=== PATIENT | female | born 1995 | race Caucasian/White ===

== ENCOUNTER → 2020-08-13 12:49 | Outpatient (CLI) | payer OTHER, SELFPAY ==
[2020-08-14 15:20] LABS: Strep Grp B PCR NEG for Grp B Strep
== END ==
PROVIDERS: Visit Provider Family Medicine
DX: Z34.83 Encounter for supervision of other normal pregnancy, third trimester (principal); Z3A.36 36 weeks gestation of pregnancy
CPT/HCPCS: 87653

== ENCOUNTER 2020-08-30 14:44 | Outpatient (CLI) | payer OTHER, SELFPAY ==
[2020-08-30 15:10] LABS: RBC Urine None Seen (0-5/HPF)
[2020-08-30 15:11] LABS: Appearance Urine UA CLEAR; Bilirubin Urine UA NEGATIVE (NEGATIVE); Color Urine UA YELLOW; Glucose Urine UA NEGATIVE (Negative); Ketones Urine UA NEGATIVE (NEGATIVE); Leukocyte Esterase Urine UA NEGATIVE (NEGATIVE); Nitrite Urine UA NEGATIVE (Negative); Occult Blood Urine UA NEGATIVE (Negative); Protein Urine UA NEGATIVE (Negative); Specific Gravity Urine UA <=1.005 (1.000-1.035); Urobilinogen Urine UA 0.2 E.U./dL (0.2)
[2020-08-30 15:17] LABS: pH Urine UA 6.5 (4.5-8.0)
[2020-08-30 15:19] LABS: Squamous Epithelial Cell Urine 1-5 /HPF (0-5/HPF); WBC Urine 1-5/HPF (0-5/HPF)
[2020-08-30 15:20] LABS: Bacteria Urine Many (>30); Culture Indicated Urine Specimen Cultured
[2020-08-30 15:28] LABS: Add Manual Diff / Slide Review NO; Basophils Absolute Auto 0 /uL (0-100); Basophils Percent Auto 0.3 % (0-2); Eosinophils Absolute Auto 0 /uL (0-450); Eosinophils Percent Auto 0.3 % (2-4); Hematocrit 37.8 % (36-46); Hemoglobin 12.6 g/dL (12.0-16.0); Lymphocytes Absolute Auto 2500 /uL (1100-4500); Lymphocytes Percent Auto 16.2 % (25-40); Mean Corpuscular HGB Conc 33.2 % (30-36); Mean Corpuscular Hemoglobin 30.6 PG (26-34); Mean Corpuscular Volume 92.2 fL (80-100); Monocytes Absolute Auto 1000 /uL (0-900); Monocytes Percent Auto 6.3 % (3-14); Neutrophils Absolute Auto 11800 /uL (1500-7000); Neutrophils Percent Auto 76.9 % (50-75); Platelet Count 269 X10^3/uL (150-400); Red Cell Distribution Width 13.4 % (11.6-14.8); White Blood Cell Count 15.3 X10^3/uL (4.5-11.0)
[2020-08-30 15:41] LABS: Aspartate Aminotransferase 23 IU/L (14-36); BUN Creatinine Ratio 12.3 (6-22); Blood Urea Nitrogen 7 mg/dL (7-17); Estimated Glomerular Filt Rate > 60.0 mL/min (>60); Uric Acid 5.2 mg/dL (2.5-6.2)
[2020-08-30] MEDS: ACETAMINOPHEN 325 MG TABLET 975 MG PO (16:15)
== END 2020-08-30 16:20 | disposition home or self-care (01) ==
LOC: OB 08-31 12:01
PROVIDERS: Referring Provider Obstetrics & Gynecology; Visit Provider Obstetrics & Gynecology
DX: O13.3 Gestational [pregnancy-induced] hypertension without significant proteinuria, third trimester (principal); O36.8130 Decreased fetal movements, third trimester, not applicable or unspecified; Z3A.38 38 weeks gestation of pregnancy
CPT/HCPCS: 36415; 59025; 81001; 84450; 84550; 85025; 87086; G0378; G0379

== ENCOUNTER 2020-09-06 01:57 | Inpatient (IN) | payer OTHER, SELFPAY ==
[2020-09-06 03:39] LABS: Add Manual Diff / Slide Review NO; Basophils Absolute Auto 0 /uL (0-100); Basophils Percent Auto 0.2 % (0-2); Eosinophils Absolute Auto 100 /uL (0-450); Eosinophils Percent Auto 0.3 % (2-4); Hemoglobin 12.9 g/dL (12.0-16.0); Lymphocytes Absolute Auto 3600 /uL (1100-4500); Lymphocytes Percent Auto 17.5 % (25-40); Mean Corpuscular HGB Conc 33.9 % (30-36); Mean Corpuscular Hemoglobin 31.3 PG (26-34); Mean Corpuscular Volume 92.2 fL (80-100); Monocytes Absolute Auto 1100 /uL (0-900); Monocytes Percent Auto 5.5 % (3-14); Neutrophils Absolute Auto 15700 /uL (1500-7000); Neutrophils Percent Auto 76.5 % (50-75); Platelet Count 260 X10^3/uL (150-400); Red Blood Cell Count 4.12 X10^6/uL (4.0-5.2); Red Cell Distribution Width 13.2 % (11.6-14.8); White Blood Cell Count 20.5 X10^3/uL (4.5-11.0)
[2020-09-06 04:15] LABS: COVID19 -Nasal RAPID Negative (Negative)
[2020-09-06 04:22] LABS: Alanine Aminotransferase 17 IU/L (<35); Albumin 3.8 g/dL (3.5-5.0); Albumin Globulin Ratio 1.2 (1.0-2.8); Alkaline Phosphatase 126 U/L (38-126); Aspartate Aminotransferase 21 IU/L (14-36); BUN Creatinine Ratio 17.9 (6-22); Bilirubin Total 0.2 mg/dL (0.2-1.3); Bilirubin Unconjugated 0.2 mg/dL (0.0-1.1); Blood Urea Nitrogen 10 mg/dL (7-17); Calcium 8.8 mg/dL (8.4-10.2); Carbon Dioxide 23 mmol/L (22-32); Chloride 106 mmol/L (98-107); Estimated Glomerular Filt Rate > 60.0 mL/min (>60); Globulin 3.3 g/dL (1.7-4.1); Glucose 101 mg/dL (70-100); HEMOLYSIS < 15 (0-50); Potassium 4.2 mmol/L (3.4-5.1); Sodium 134 mmol/L (137-145); Total Protein 7.1 g/dL (6.3-8.2); Uric Acid 5.3 mg/dL (2.5-6.2)
[2020-09-06 05:05] VITALS: BP 144/84
[2020-09-06 06:18] LABS: Creatinine Urine Random 51.1 mg/dL; Protein (Total) Urine Random 11 mg/dL (0-12); Protein Creatinine Ratio Urine 0.21 GRAM/24H
--- NOTE | 2020-09-06 07:57 | PM.OBHP.1 ---
OB HPI Date/Time Date of admission: 09/06/20 Date Patient Seen: 09/06/20 Time Patient Seen: 08:15 History of Present Condition Chief complaint: obs : 2 Para: 0 Estimated Date of Delivery: 09/07/20 Estimated Gestational Age (weeks): 39+6 Narrative: Terri Ayers is a 24 year old at 39 weeks and 6 days gestation. She came in with regular contractions which increased in frequency and intensity overnight. Contractions began at approximately 8:00 p.m. yesterday. Denies leaking bleeding and reports good movement. has been uncomplicated without gestational diabetes or preeclampsia however blood pressures have been persistently elevated since admission. She denies headache, edema or right upper quadrant pain. Preeclampsia labs all normal. Patient transferred care from the [facility] at 30 weeks. History of Present care: good care, initiated at week # (10), number of visits (10) and pounds weight gain (52) Dating criteria: LMP confirmed by 1st trimester US Ultrasounds: normal mid trimester US Obstetrical complications: none Medical complications: none Preadmission Labs Blood type: A (+) positive -: Antibody screen: negative, GBS status: negative, HBsAG: negative, HIV: negative and RPR/VDLR: negative -: Chlamydia screen: not detected and Gonorrhea screen: not detected -: Rubella: immune and Varicella: not immune HCT: 35.5 HCAB: negative PAP: Normal Integrated screen: Negative Urine: 20,000 Klebsiella 1 hr GTT: 86 Prior (ies) History: 05/30/19 SAB with D&C at 8 weeks Evaluation Evaluation Baseline heart rate: 140 Variability: Moderate (11-25) monitor accelerations: Present monitor decelerations: Absent Contraction Frequency (minutes): 3 Category of Tracing: Reactive Cervical dilation (cm): 5 Cervical effacement (%): 100 station: -2 Laboratory results: Laboratory Tests 09/06/20 09/06/20 09/06/20 02:25 02:40 02:40 WBC 20.5 H RBC 4.12 Hgb 12.9 Hct 38.0 MCV 92.2 MCH 31.3 MCHC 33.9 RDW 13.2 Plt Count 260 Neut % (Auto) 76.5 H Lymph % (Auto) 17.5 L [place] % (Auto) 5.5 Eos % (Auto) 0.3 L Baso % (Auto) 0.2 Neut # (Auto) 16526 H Lymph # (Auto) 3600 [place] # (Auto) 1100 H Eos # (Auto) 100 Baso # (Auto) 0 Sodium Potassium Chloride Carbon Dioxide BUN Creatinine Estimated GFR BUN/Creatinine Ratio Glucose Uric Acid Calcium Total Bilirubin Conjugated Bilirubin Unconjugated Bilirubin AST ALT Alkaline Phosphatase Total Protein Albumin Globulin Albumin/Globulin Ratio U Random Total Protein Urine Creatinine Protein/Creatinin Ratio COVID-19 PCR Negative Blood Type A Positive Antibody Screen Negative 09/06/20 09/06/20 04:00 05:59 WBC RBC Hgb Hct MCV MCH MCHC RDW Plt Count Neut % (Auto) Lymph % (Auto) [place] % (Auto) Eos % (Auto) Baso % (Auto) Neut # (Auto) Lymph # (Auto) [place] # (Auto) Eos # (Auto) Baso # (Auto) Sodium 134 L Potassium 4.2 Chloride 106 Carbon Dioxide 23 BUN 10 Creatinine 0.56 Estimated GFR > 60.0 BUN/Creatinine Ratio 17.9 Glucose 101 H Uric Acid 5.3 Calcium 8.8 Total Bilirubin 0.2 Conjugated Bilirubin 0.0 Unconjugated Bilirubin 0.2 AST 21 ALT 17 Alkaline Phosphatase 126 Total Protein 7.1 Albumin 3.8 Globulin 3.3 Albumin/Globulin Ratio 1.2 U Random Total Protein 11 Urine Creatinine 51.1 Protein/Creatinin Ratio 0.21 COVID-19 PCR Blood Type Antibody Screen [facility] Medical History Anxiety (Acute ~2018) Depression (Acute ~2018) Irregular menstrual cycle (Chronic ~2012) Kidney stones (Acute ~04/2019) Ovarian cyst (Chronic ~2016) Painful menstrual periods (Chronic ~2014) Surgical History Anesthesia (Resolved) H/O dilation and curettage (Acute ~07/2019) [place] teeth extracted (Acute ~2018) Family History Father Status post cardiac surgery Congenital heart defect ADD (attention deficit disorder) History of bipolar disorder Hypertension Hyperlipidemia Mother Cervical cancer Grandfather Diabetes mellitus History of heart disease History of open heart surgery Grandfather Pancreatic cancer Grandmother Hypertension Hyperlipidemia Social History (Reviewed 09/06/20 @ 08:50 by RAJENDRA Salinas marital status: number of children: 0 household members: spouse lives independently: Yes occupational status: employed (works from home currently) current occupational exposures/hazards: No Smoking Status: Former smoker Tobacco: How many years used: 2 Smokeless tobacco user: dissolvable tobacco (vape) second hand exposure: No alcohol intake: former substance use type: does not use Meds Home Medications and Allergies Home Medications Medication Instructions Recorded Confirmed Type calcium carbonate 200 mg calcium 200 mg PO BID 07/02/20 09/02/20 History (500 mg) chewable tablet prenat.vits,rashaun,[id number] 1 tab PO DAILY 07/02/20 09/02/20 History Allergies Allergy/AdvReac Type Severity Reaction Status Date / Time No Known Drug Allergies Allergy Verified 09/02/20 13:41 Review of Systems Review of Systems ROS: Yes All systems reviewed with the patient and are negative except as otherwise documented Exam Vital Signs (past 8 hours): - 09/06/20 05:05 Blood Pressure 144/84 H Temperature 37.6? blood pressure 137/93 heart rate 120 Const General: healthy appearing and other (Uncomfortable but coping well) HENAL Head: normal to inspection Ears: hearing grossly normal bilaterally Nose: external nose normal Face and sinus: normal facial exam Mouth: oral mucosae normal Eyes General: appearance normal, both eyes and all related structures Neck Neck: normal visual inspection Resp Effort & Inspection: normal respiratory effort Auscultation: clear to auscultation bilaterally Cardio Rate: regular rate Rhythm: regular rhythm Heart Sounds: no murmurs GI Other: Gravid External Female Exam: normal external appearance Manual OB Exam: dilated 5, effaced fully and station -2 Presentation: vertex Estimated Weight (lbs): 7 Back/Spine/Pelvis Back: normal to inspection Skin General: no rashes or lesions noted Extrem General: normal to inspection and no pedal edema Objective Labs Result Diagrams: 09/06/20 02:40 09/06/20 04:00 Labs: Laboratory Results - last 24 hr 09/06/20 09/06/20 09/06/20 02:25 02:40 02:40 WBC 20.5 H RBC 4.12 Hgb 12.9 Hct 38.0 MCV 92.2 MCH 31.3 MCHC 33.9 RDW 13.2 Plt Count 260 Neut % (Auto) 76.5 H Lymph % (Auto) 17.5 L [place] % (Auto) 5.5 Eos % (Auto) 0.3 L Baso % (Auto) 0.2 Neut # (Auto) 33763 H Lymph # (Auto) 3600 [place] # (Auto) 1100 H Eos # (Auto) 100 Baso # (Auto) 0 Sodium Potassium Chloride Carbon Dioxide BUN Creatinine Estimated GFR BUN/Creatinine Ratio Glucose Uric Acid Calcium Total Bilirubin Conjugated Bilirubin Unconjugated Bilirubin AST ALT Alkaline Phosphatase Total Protein Albumin Globulin Albumin/Globulin Ratio U Random Total Protein Urine Creatinine Protein/Creatinin Ratio COVID-19 PCR Negative Blood Type A Positive Antibody Screen Negative 09/06/20 09/06/20 04:00 05:59 WBC RBC Hgb Hct MCV MCH MCHC RDW Plt Count Neut % (Auto) Lymph % (Auto) [place] % (Auto) Eos % (Auto) Baso % (Auto) Neut # (Auto) Lymph # (Auto) [place] # (Auto) Eos # (Auto) Baso # (Auto) Sodium 134 L Potassium 4.2 Chloride 106 Carbon Dioxide 23 BUN 10 Creatinine 0.56 Estimated GFR > 60.0 BUN/Creatinine Ratio 17.9 Glucose 101 H Uric Acid 5.3 Calcium 8.8 Total Bilirubin 0.2 Conjugated Bilirubin 0.0 Unconjugated Bilirubin 0.2 AST 21 ALT 17 Alkaline Phosphatase 126 Total Protein 7.1 Albumin 3.8 Globulin 3.3 Albumin/Globulin Ratio 1.2 U Random Total Protein 11 Urine Creatinine 51.1 Protein/Creatinin Ratio 0.21 COVID-19 PCR Blood Type Antibody Screen Assessment and Plan Assessment and Plan Assessment and Plan narrative: 24-year-old at 39 weeks and 6 days in active labor. Blood pressures have been elevated however preeclampsia labs normal. Patient is progressing well on her own and requesting an epidural now. GBS negative. Expectant management, anticipate vaginal delivery.
[2020-09-06] MEDS: LACTATED RINGERS 1,000 ML 100 ML IV (08:00)
--- NOTE | 2020-09-06 11:51 | PM.OBPNLAB ---
Date/Time Date Patient Seen: 09/06/20 Time Patient Seen: 11:51 Pain Control Pain control: tolerating well and epidural Pelvic Exam Dilation (cm): 9 Effacement (%): 100 station: -2 Amniotic membrane status: Ruptured Comments: Meconium Status status: Category l Heart Rate Baseline: 135 Monitor Accelerations: Present Monitor Decelerations: Absent Monitor Variability: Moderate Assessment and Plan Assessment: active labor Plan: continuous present management Comments: Patient 9 cm -2 station. Bulging bag. Rupture of membranes with some lightly stained meconium. Baby still at -2 station. Rupture of membrane to see if we can not get baby did decrease station. Mom has some ongoing tachycardia. Been present since admission. Fluid status is normal. Afebrile. White blood cell count is slightly elevated but maybe within normal limits for labor. COVID test is negative Mom says she gets tachycardic all the time and this is not abnormal for her. Continue to monitor maternal tachycardia. Blood pressure was also elevated. Blood pressures are normotensive now. Preeclamptic labs are negative. Continue with current management. Rupture of membranes. Monitor closely for improvement of station. Monitor vital signs closely for temperature signs and symptoms of infection due to maternal tachycardia.
[2020-09-06] MEDS: FENT 2MCG/ML BUPIV 0.125% EPI 200 MCG/100 ML PLAST..BAG 12 MCG EPIDURAL (13:56)
--- NOTE | 2020-09-06 15:26 | PM.OBPNLAB ---
Date/Time Date Patient Seen: 09/06/20 Time Patient Seen: 15:26 Pain Control Pain control: tolerating well and epidural Pelvic Exam Dilation (cm): 10 Effacement (%): 100 station: +1 Amniotic membrane status: Ruptured Contractions Contractions on admission: regular Monitor mode: External Contraction pattern: Regular Contraction intensity: Strong/Firm Status status: Category l Monitor Accelerations: Present Monitor Decelerations: Early Monitor Variability: Moderate Assessment and Plan Assessment: active labor Plan: continuous present management Comments: Patient starting to push. Complete now +1 station. Starting a little Pitocin to help with contraction pattern. Still light meconium. Mom's vital signs are stable slightly tachycardic. Temperature afebrile.
[2020-09-06] MEDS: OXYTOCIN PREMIX 30 UNIT/500 ML PLAST..BAG IV (15:27)
--- NOTE | 2020-09-06 17:40 | PM.PROC.1 ---
Procedures Date/Time Date of procedure: 09/06/20 Time of procedure: 17:41 General Procedure description: Vaginal delivery Stage I of labor approximately 13 hours patient presented to Labor and delivery floor at about 2:00 a.m.. Patient was found to be 2 cm rudolph. On arrival to the center patient had deceleration. She was found to be in early labor but due to the decelerations mom and baby were continued to be monitored. Patient and baby were monitored overnight had no further decelerations mom continued to have intermittent contractions which then became consistent contractions. Her pain was well controlled. During the over the evening hours mom had a slight elevation of her blood pressure of 144. Patient had preeclamptic blood work done which showed normal laboratory testing not concerning for preeclampsia. By the morning. Mom made good progress and was at 5 cm had a bulging bag. And was rudolph her contractions became uncomfortable and requested an epidural which was given. Patient then progressed to approximately 9 cm. Minus two station. At that point I took over care. Patient had amniotomy of meconium-stained fluid moderate staining. From about 11 30 till 3. Patient made slow progress. With adequate contractions. Tried different position changes. Minimal time it will eat then the patient became complete and +1 station and that is when pushing started. During stage I of labor. Category 1 category 2 tracing normal blood pressure throughout. Stage II of labor approximately 1 hour and 45 minutes during stage II of labor patient had category 1 and category 2 tracing. During pushing stage heart rate remained good with a few early decelerations. With good variability. Mom's heart rate became tachycardic during pushing. And in the last 15 minutes of the pushing. Baby became tachycardic. That point baby was on the perineum. Mom was unable to push further. A small midline episiotomy was then cut was then facilitated a A VAC was placed on the baby's head at +3 station and baby delivered spontaneously with no pop offs. Baby was in the vertex position occiput posterior. Patient was found to have a nuchal cord. The cord was cut and transected before delivery of the shoulders. Baby initially had some spontaneous cry. But ultimately was then moved to the warmer. Stage III of labor approximately 15 minutes delivery of intact placenta with three-vessel cord. Pitocin was given at the delivery of the baby to mom. Mom had an estimated blood loss of 200 cc. Mom had repair of a second-degree midline episiotomy in the usual fashion with 2-0 Vicryl. Mom was resting comfortably after the delivery. Vital signs were stable. Baby's Apgars were 5 6 and 7
[2020-09-07] MEDS: LANOLIN OINT 7 GM 1 APPLIC TOP ×2 (01:47→08:36)
[2020-09-07] MEDS: HYDROCODONE/ACET 5/325 TABLET 1 TAB PO ×4 (01:48→21:55)
[2020-09-07] MEDS: DERMOPLAST SPRAY 20% 60 ML 1 SPRAY TOP (01:48)
[2020-09-07 07:33] LABS: Hematocrit 32.9 % (36-46)
[2020-09-07] MEDS: PRENATAL VIT,CALC/IRON/FOLIC 1 TABLET 1 TAB PO (08:36)
--- NOTE | 2020-09-07 09:22 | P.PN_ITS ---
Subjective Subjective Date Patient Seen: 09/07/20 Time Patient Seen: 07:22 Interval history: 25-year-old day 1. Doing well this morning. Patient states she has minimal pain. She has a little bit of abdominal cramping breast-feeding is going well she has ambulated. Has had urination no bowel movement tolerating her diet. Vital signs have been stable she is afebrile. Bleeding is what she would anticipate. No swelling in blood pressures been much better. Exam Vital Signs (past 8 hours): General: Alert no apparent distress. Affect is appropriate. Vickie it is uncomfortable. HEENT: Neck is supple without lymphadenopathy pupils equal round and reactive. Cardio: S1-S2 regular rate and rhythm. Respiratory: Lungs clear to auscultation. Abdomen: Uterus firm. Incision clean dry and intact. Extremities: Normal deep tendon reflexes trace edema. Objective Labs Result Diagrams: 09/07/20 07:00 09/06/20 04:00 Labs: Laboratory Results - last 24 hr 09/07/20 07:00 Hgb 11.0 L Hct 32.9 L Assessment & Plan Assessment & Plan narrative: day 1. Patient is ambulating tolerating diet hemoglobin hematocrit stable vital signs are stable. Bleeding is anticip ated. Tylenol and ibuprofen is written for for pain control. Patient has good bladder control no bowel movement yet. Stool softeners were written for. Advance diet as tolerated. Continue to work on . Blood pressure is much better this morning. Continue with care anticipate discharge tomorrow.
[2020-09-07] MEDS: IBUPROFEN 600 MG TABLET PO ×3 (10:18→21:55)
[2020-09-07] MEDS: DOCUSATE 100 MG CAPSULE PO (10:18)
[2020-09-08] MEDS: HYDROCODONE/ACET 5/325 TABLET 1 TAB PO (02:09)
[2020-09-08] MEDS: PRENATAL VIT,CALC/IRON/FOLIC 1 TABLET 1 TAB PO (07:52)
[2020-09-08] MEDS: IBUPROFEN 600 MG TABLET PO (07:52)
[2020-09-08] MEDS: DOCUSATE 100 MG CAPSULE PO (07:52)
--- NOTE | 2020-09-08 09:00 | PM.DS.1 ---
History of Present Illness History of Present Illness Chief complaint: maternity Discharge Providers Provider Date of admission: 09/06/20 01:57 Discharge Date: 09/08/20 Primary care physician: Doctor Guero MD Consults: 09/06/20 03:24 Consult to Anesthesiology Urgent Comment: Consulting Provider: Anesthesiologist Reason for consultation: labor pain 09/07/20 17:35 Consult to Earth Science Professor Routine Comment: Discharge provider: Noe Zelaya MD Summary Hospital Course Discharge Diagnosis: Delivery of viable female infant vaginally Routine care Hospital Course: Patient presented to the labor and delivery floor in labor. Went on to deliver a viable female . Patient had routine care. Exam Vital Signs (past 8 hours): General: Alert no apparent distress. Affect is appropriate. Vickie it is uncomfortable. HEENT: Neck is supple without lymphadenopathy pupils equal round and reactive. Cardio: S1-S2 regular rate and rhythm. Respiratory: Lungs clear to auscultation. Abdomen: Uterus firm. Extremities: Normal deep tendon reflexes trace edema. Objective Labs Result Diagrams: 09/07/20 07:00 09/06/20 04:00 Discharge Plan Discharge Plan Patient Disposition: Home Discharge orders & Medications Prescriptions: New docusate sodium [DOK] 100 mg Capsule 100 mg PO BID PRN (Reason: Constipation) Qty: 20 RF: 0 ibuprofen 600 mg Tablet 600 mg PO Q6HR PRN (Reason: Fever/Mild Pain (1-3)) Qty: 30 RF: 0 Continued prenat.vits,rashaun,[id number] Tablet 1 tab PO DAILY RF: 0 Discontinued calcium carbonate [Tums] 200 mg calcium (500 mg) tablet,chewable 200 mg PO BID RF: 0 Follow up/Referrals: Noe Zelaya MD [Physician] - (Dr. Zelaya: @ 11:30am appt.) Diet/Activity/Treatments Diet: Diet as Tolerated Activity: As tolerated pelvic rest for 6 weeks No vigorous activity until follow-up in 6 weeks Visit Report/Discharge Packet Stand Alone Forms: Discharge: Care Visit Report Forms: Patient Portal/API, Stroke Signs & Symptoms Discharge Data Primary Care Provider: Doctor Guero
== END 2020-09-08 09:48 | disposition home or self-care (01) | DRG 807 ==
PROVIDERS: Family Medicine; Admitting Provider Family Medicine; Referring Provider Family Medicine; Visit Provider Family Medicine
DX: O76 Abnormality in fetal heart rate and rhythm complicating labor and delivery (principal); Z37.0 Single live birth; R03.0 Elevated blood-pressure reading, without diagnosis of hypertension; R00.0 Tachycardia, unspecified; O77.0 Labor and delivery complicated by meconium in amniotic fluid; O69.81X0 Labor and delivery complicated by cord around neck, without compression, not applicable or unspecified; Z3A.39 39 weeks gestation of pregnancy; Z11.59 Encounter for screening for other viral diseases
CPT/HCPCS: 01967; 36415; 59050; 59410; 80053; 80076; 82570; 84156; 84550; 85014; 85018; 85025; 86850; 86900; 86901; 87635; G0379; J2590